=== PATIENT | female | born 1975 | race Caucasian/White ===

== ENCOUNTER 2019-07-08 12:27 | Emergency (ER) | payer MEDICAID ==
[~2019-07-08] VITALS: Ht 160 cm; Wt 62.7 kg
[2019-07-08 12:35] VITALS: BP 140/83
[2019-07-08] MEDS ORDERED: PRED20TA PO (13:03)
[2019-07-08] MEDS ORDERED: CEPH500C5 PO (13:03)
== END 2019-07-08 13:15 | disposition home or self-care (01) ==
LOC: ER 12:28
DX: L30.9 Dermatitis, unspecified (principal); Z79.899 Other long term (current) drug therapy
CPT/HCPCS: 99283